=== PATIENT | female | born 1975 | race Caucasian/White ===

== ENCOUNTER 2017-11-11 07:40 | Emergency (ER) | payer SELFPAY ==
[~2017-11-11] VITALS: Ht 165.1 cm; Wt 69.0 kg
[2017-11-11 08:45] VITALS: BP 92/50
== END 2017-11-11 08:46 | disposition home or self-care (01) ==
LOC: M.ERS 07:40
DX: S01.81XA Laceration without foreign body of other part of head, initial encounter (principal); W26.8XXA Contact with other sharp object(s), not elsewhere classified, initial encounter; Y92.89 Other specified places as the place of occurrence of the external cause; Y93.01 Activity, walking, marching and hiking; Y99.8 Other external cause status